=== PATIENT | female | born 1965 | race Caucasian/White ===

== ENCOUNTER 2021-12-28 13:39 | Outpatient (CLI) | payer BC | END 2021-12-28 13:40 | disposition home or self-care (01) | LOC: CSHMRI 13:39 | PROVIDERS: ATTEND Orthopaedic Surgery Sports Medicine | DX: M23.91 Unspecified internal derangement of right knee (principal); S83.231A Complex tear of medial meniscus, current injury, right knee, initial encounter; M94.261 Chondromalacia, right knee; M25.461 Effusion, right knee; M71.21 Synovial cyst of popliteal space [Baker], right knee; M89.8X6 Other specified disorders of bone, lower leg ==